=== PATIENT | female | born 1970 | race Caucasian/White ===

== ENCOUNTER 2019-09-19 09:31 | Emergency (ER) | payer BC ==
[~2019-09-19] VITALS: Ht 172.7 cm; Wt 124.7 kg
[~2019-09-19 09:31] MED LIST: ACETAMINOPHEN325 M1 PO; BAYER CHEWABLE81 MG PO; BENADRYL25 MG PO; BEPREVE OPHTHALMIC; CARDIZEM CD120 MG; CARDIZEM CD120 MG PO; CEREFOLIN NAC; CEREFOLIN PO; CEREFOLIN TABL1 EAC1 PO; COMPAZINE5 MG PO; CRESTOR10 MG PO; ELIQUIS2.5 MG PO; FLECAINIDE ACE100 MG; FLECAINIDE ACET50 M1 PO; FLEXERIL PO; FLORINEF ACETA0.1 MG PO; IBUPROFEN 200200 M1 PO; KEPPRA 500 MG500 M1; KEPPRA1000 MG PO; KOMBIGLYZE XR1 EAC2 PO; LANOXIN 0.25M0.25 M1; LOTEMAX5 GM OPHTHALMIC; MIDODRINE HCL 55 M1; MIDODRINE HCL2.5 M1 PO; MULTIVITAMINS PO; NAPROSYN500 MG PO; NASACORT AQ NASAL; NORCO 5-325 TA1 EACH PO; PEPCID20 MG PO; PERCOCET 5-3251 EACH PO; PRILOSEC OTC20 MG PO; PRILOSEC40 MG; PROAIR HFA8.5 GM INH; REGLAN 10 MG TA10 MG PO; SAVELLA100 MG PO; SAVELLA50 MG PO; TOPAMAX25 M1 PO; TOPAMAX50 MG PO; TOPROL XL25 MG PO; TRILEPTAL 300300 MG PO; TRILIPIX135 MG PO; VALIUM2 MG PO; VENTOLIN17 GM INH; VITAMIN D 5050000 I1 PO; ZOFRAN 4 MG ORAL4 M1 DIS; ZOFRAN ODT4 MG PO; ZYRTEC10 M2 PO
[2019-09-19 10:34] LABS: ABSOLUTE NEUTROPHILS 3.3 thou/uL (1.4-8.2); BASOPHILS 0.6 % (0.0-2.0); EOSINOPHILS 2.9 % (0.0-3.0); HEMATOCRIT 44.4 % (37.0-47.0); HEMOGLOBIN 14.9 gm/dL (12.0-15.0); MCH 31.8 pg (26.0-34.0); MCHC 33.6 g/dL (28.0-37.0); MCV 94.7 fL (80.0-100.0); MONOCYTES 10.3 % (1.0-8.0); PLATELET COUNT 235 thou/uL (150-400); POLYS 54.2 % (36.0-66.0); RBC 4.69 mil/uL (4.20-5.00); RDW 14.2 % (10.5-14.5); WBC 6.2 thou/uL (4.0-11.0)
[2019-09-19 10:46] LABS: ANION GAP 12 mmol/L (7-16); BUN 15 mg/dL (7-18); CALCIUM 9.6 mg/dL (8.5-10.1); CHLORIDE 101 mmol/L (98-107); CO2 27 mmol/L (21-32); GLUCOSE 101 mg/dL (74-106)
[2019-09-19 10:48] LABS: SODIUM 140 mmol/L (136-145)
[2019-09-19 10:52] LABS: TROPONIN-I <0.06 ng/mL (<0.06)
[2019-09-19] MEDS ORDERED: FAMOTIDINE40 MG PO (11:54)
[2019-09-19] MEDS ORDERED: FLEXERIL PO (11:57)
[2019-09-19] MEDS ORDERED: METFORMIN HCL500 M3 PO (11:58)
[2019-09-19 12:43] LABS: LARGE PLATELETS FEW
--- NOTE | 2019-09-19 15:50 | EKG ---
[facility] [place] [address] ELECTROCARDIOGRAM REPORT Name: CLAUDIO MARIE Room #: REG [facility]..#: [id number] Admission: 09/19/19 Attend Phys: Discharge: Date of : 70 Report #: [id number] THIS REPORT FOR: cc: Susana Daniels MD, Rochelle M. MD Couchonnal, Luis F. MD ~ THIS REPORT FOR: //name// [facility] ED Test Date: 2019-09-19 Test Time: 09:43:06 Pat Name: CLAUDIO MARIE Department: Room: Gender: F Assistant Site Manager: THANH SAUNDRAKATHY : 1970 Requested By: Rocael Huff Order Number: [id number] MD: Foster Escobedo Measurements Intervals [place] Rate: 113 P: 60 [place]: 120 QRS: 30 QRSD: 82 T: 2 QT: 345 QTc: 473 Interpretive Statements Sinus tachycardia Low voltage, precordial leads Borderline T wave abnormalities Compared to ECG 02/19/2014 11:27:20 Low QRS voltage now present T-wave abnormality now present Sinus rhythm no longer present Short [place] interval no longer present Electronically Signed On 09-19-2019 15:50:35 CDT by Foster Escobedo [email or web address] <ELECTRONICALLY SIGNED> By: Foster Escobedo MD 09/19/19 1550 0943 0943 Foster Escobedo MD /EPI
[2019-09-19 16:10] VITALS: BP 116/83
== END 2019-09-19 16:10 | disposition home or self-care (01) ==
LOC: ER 09:31
PROVIDERS: Emergency Medicine
DX: I49.8 Other specified cardiac arrhythmias (principal); R07.89 Other chest pain; I48.91 Unspecified atrial fibrillation; G43.909 Migraine, unspecified, not intractable, without status migrainosus; J45.909 Unspecified asthma, uncomplicated; Z88.5 Allergy status to narcotic agent; Z88.6 Allergy status to analgesic agent; Z88.8 Allergy status to other drugs, medicaments and biological substances; Z79.899 Other long term (current) drug therapy; Z90.710 Acquired absence of both cervix and uterus

== ENCOUNTER 2020-01-02 12:02 | Emergency (ER) | payer BC, OTHER ==
[~2020-01-02] VITALS: Ht 172.7 cm; Wt 113.4 kg
[~2020-01-02 12:02] MED LIST changes: +FAMOTIDINE40 MG PO; +METFORMIN HCL500 M3 PO
[2020-01-02 12:25] LABS: ABSOLUTE NEUTROPHILS 3.8 thou/uL (1.4-8.2); BASOPHILS 0.6 % (0.0-2.0); HEMATOCRIT 39.1 % (37.0-47.0); HEMOGLOBIN 13.2 gm/dL (12.0-15.0); LYMPHOCYTES 27.3 % (24.0-44.0); MCH 31.9 pg (26.0-34.0); MCHC 33.8 g/dL (28.0-37.0); MCV 94.2 fL (80.0-100.0); POLYS 58.1 % (36.0-66.0); RBC 4.15 mil/uL (4.20-5.00); RDW 13.8 % (10.5-14.5); WBC 6.5 thou/uL (4.0-11.0)
[2020-01-02 12:38] LABS: ANION GAP 12 mmol/L (7-16); BUN 13 mg/dL (7-18); CALCIUM 8.9 mg/dL (8.5-10.1); CHLORIDE 105 mmol/L (98-107); CO2 24 mmol/L (21-32); GLUCOSE 104 mg/dL (74-106); SODIUM 141 mmol/L (136-145)
[2020-01-02 12:40] LABS: URINE BILIRUBIN NEGATIVE (Negative); URINE BLOOD NEGATIVE (Negative); URINE CLARITY CLEAR; URINE COLOR YELLOW; URINE GLUCOSE-RANDOM* NEGATIVE (Negative); URINE KETONES NEGATIVE (Negative); URINE LEUKOCYTES-REFLEX NEGATIVE (Negative); URINE NITRITE-REFLEX NEGATIVE (Negative); URINE PROTEIN (DIPSTICK) NEGATIVE (Negative); URINE SPECIFIC GRAVITY <= 1.005 (1.005-1.035); URINE UROBILINOGEN 0.2 E.U./dl (0.2-1.0)
[2020-01-02 12:47] LABS: MAGNESIUM 1.6 mg/dL (1.8-2.4); TROPONIN-I <0.06 ng/mL (<0.06)
[2020-01-02 13:30] LABS: PLATELET COUNT 214 thou/uL (150-400)
--- NOTE | 2020-01-02 13:34 | EKG ---
[facility] [place] [address] ELECTROCARDIOGRAM REPORT Name: CLAUDIO MARIE Room #: REG [facility].#: [id number] Admission: 01/02/20 Attend Phys: Discharge: Date of : 70 Report #: [id number] THIS REPORT FOR: cc: Susana Daniels MD, Rochelle M. MD Santiago, Patrick MD [facility] ~ THIS REPORT FOR: //name// [facility] ED Test Date: 2020-01-02 Test Time: 12:27:44 Pat Name: CLAUDIO MARIE Department: Room: Gender: F [employer] Agent: esheets : 1970 Requested By: Nathen Bass Order Number: [id number] MD: Meng Buck Measurements Intervals [place] Rate: 101 P: 63 [place]: 133 QRS: 22 QRSD: 93 T: 10 QT: 349 QTc: 453 Interpretive Statements Sinus tachycardia Low voltage, precordial leads Compared to ECG 09/19/2019 09:43:06 T-wave abnormality no longer present Electronically Signed On 01-02-2020 13:34:28 ASSOCIATE PROJECT MANAGER by Meng Buck [email or web address] <ELECTRONICALLY SIGNED> By: Meng Buck MD, FACC 01/02/20 1334 1227 1227 Meng Buck MD, FACC /EPI
[2020-01-02 13:50] VITALS: BP 125/67
[2020-01-02] MEDS ORDERED: ZOFRAN ODT4 MG PO (13:50)
== END 2020-01-02 13:50 | disposition home or self-care (01) ==
LOC: ER 12:02
PROVIDERS: Emergency Medicine
DX: I49.8 Other specified cardiac arrhythmias (principal); R11.2 Nausea with vomiting, unspecified; R42 Dizziness and giddiness; R19.7 Diarrhea, unspecified; I48.91 Unspecified atrial fibrillation; J45.909 Unspecified asthma, uncomplicated; G43.909 Migraine, unspecified, not intractable, without status migrainosus; Z88.5 Allergy status to narcotic agent; Z88.8 Allergy status to other drugs, medicaments and biological substances; Z90.89 Acquired absence of other organs; Z90.711 Acquired absence of uterus with remaining cervical stump; Z90.49 Acquired absence of other specified parts of digestive tract; Z79.899 Other long term (current) drug therapy; Z88.6 Allergy status to analgesic agent

== ENCOUNTER 2020-01-10 12:19 | Emergency (ER) | payer BC, OTHER ==
[~2020-01-10] VITALS: Ht 175.3 cm; Wt 113.4 kg
[2020-01-10 13:13] LABS: CALCIUM 9.6 mg/dL (8.5-10.1); POTASSIUM 4.1 mmol/L (3.5-5.1)
[2020-01-10 13:18] LABS: ABSOLUTE NEUTROPHILS 4.7 thou/uL (1.4-8.2); BASOPHILS 0.6 % (0.0-2.0); EOSINOPHILS 2.9 % (0.0-3.0); HEMATOCRIT 43.4 % (37.0-47.0); HEMOGLOBIN 14.4 gm/dL (12.0-15.0); LYMPHOCYTES 20.3 % (24.0-44.0); MCH 31.4 pg (26.0-34.0); MCHC 33.2 g/dL (28.0-37.0); MCV 94.7 fL (80.0-100.0); MONOCYTES 7.9 % (1.0-8.0); PLATELET COUNT 204 thou/uL (150-400); POLYS 68.3 % (36.0-66.0); RBC 4.59 mil/uL (4.20-5.00); WBC 6.8 thou/uL (4.0-11.0)
[2020-01-10 13:20] LABS: ALBUMIN 4.1 g/dL (3.4-5.0); MAGNESIUM 1.9 mg/dL (1.8-2.4); TOTAL BILIRUBIN 0.4 mg/dL (0.2-1.0); TOTAL PROTEIN 8.1 g/dL (6.4-8.2)
[2020-01-10 14:53] LABS: URINE BILIRUBIN NEGATIVE (Negative); URINE BLOOD NEGATIVE (Negative); URINE CLARITY CLEAR; URINE COLOR YELLOW; URINE GLUCOSE-RANDOM* NEGATIVE (Negative); URINE KETONES NEGATIVE (Negative); URINE LEUKOCYTES-REFLEX NEGATIVE (Negative); URINE NITRITE-REFLEX NEGATIVE (Negative); URINE PROTEIN (DIPSTICK) NEGATIVE (Negative); URINE UROBILINOGEN 0.2 E.U./dl (0.2-1.0)
[2020-01-10 15:00] LABS: AMP/METHAMP Negative (Negative); BARBITURATES Negative (Negative); BENZODIAZEPINES POSITIVE (Negative); COCAINE Negative (Negative); METHADONE Negative (Negative); OPIATES Negative (Negative); PCP Negative (Negative)
[2020-01-10 15:46] VITALS: BP 139/92
== END 2020-01-10 16:00 | disposition home or self-care (01) ==
LOC: ER 12:19
PROVIDERS: Physician Assistant
DX: R40.4 Transient alteration of awareness (principal); I48.91 Unspecified atrial fibrillation; G43.909 Migraine, unspecified, not intractable, without status migrainosus; J45.909 Unspecified asthma, uncomplicated; Z90.49 Acquired absence of other specified parts of digestive tract; Z90.710 Acquired absence of both cervix and uterus; Z90.89 Acquired absence of other organs; Z79.899 Other long term (current) drug therapy; Z88.5 Allergy status to narcotic agent; Z88.8 Allergy status to other drugs, medicaments and biological substances